=== PATIENT | male | born 1960 | race Caucasian/White ===

== ENCOUNTER 2021-08-13 08:30 | Day surgery (SDC) | payer OTHER ==
[2021-08-10 10:13] VITALS: BMI 24.1
[2021-08-13] MEDS ORDERED: LACTATED RINGERS SOLUTION 1,000 ML IV SCH (10:00)
[2021-08-13] MEDS ORDERED: MIDAZOLAM HCL 2 MG/2 ML SINGLE DOSE VIAL ONE ×2 (10:36→11:42)
[2021-08-13] MEDS ORDERED: ROPIVACAINE HCL/PF 100 MG/20 ML VIAL ONE (10:36)
[2021-08-13] MEDS ORDERED: PROPOFOL 20 ML ONE (11:43)
[2021-08-13] MEDS ORDERED: KETOROLAC TROMETHAMINE 30 MG/1 ML VIAL ONE (12:52)
[2021-08-13 14:07] VITALS: TEMP 97.6
[2021-08-13 14:44] VITALS: BP 143/90; PULSE 76
== END 2021-08-13 14:50 | disposition home or self-care (01) ==
LOC: FASU 08:30
PROVIDERS: ATTEND Orthopaedic Surgery
PROC: 0LS34ZZ Reposition Right Upper Arm Tendon, Percutaneous Endoscopic Approach (ICD-10-PCS; 2021-08-13)
PROC: 0RNJ4ZZ Release Right Shoulder Joint, Percutaneous Endoscopic Approach (ICD-10-PCS; 2021-08-13)
PROC: 0PB94ZZ Excision of Right Clavicle, Percutaneous Endoscopic Approach (ICD-10-PCS; 2021-08-13)
PROC: 0RBJ4ZZ Excision of Right Shoulder Joint, Percutaneous Endoscopic Approach (ICD-10-PCS; 2021-08-13)
PROC: 0LQ14ZZ Repair Right Shoulder Tendon, Percutaneous Endoscopic Approach (ICD-10-PCS; principal; 2021-08-13 11:30)
DX: M75.101 Unspecified rotator cuff tear or rupture of right shoulder, not specified as traumatic (principal); S46.201A Unspecified injury of muscle, fascia and tendon of other parts of biceps, right arm, initial encounter; M75.01 Adhesive capsulitis of right shoulder; M75.41 Impingement syndrome of right shoulder; M19.011 Primary osteoarthritis, right shoulder; M65.811 Other synovitis and tenosynovitis, right shoulder; S43.431A Superior glenoid labrum lesion of right shoulder, initial encounter; X58.XXXA Exposure to other specified factors, initial encounter; Y93.9 Activity, unspecified; Y92.9 Unspecified place or not applicable
CPT/HCPCS: 88304-TC; 94760

== ENCOUNTER 2023-04-03 05:12 | Day surgery (SDC) | payer OTHER ==
[2023-03-31 09:44] VITALS: BMI 26.6
[2023-04-03] MEDS ORDERED: oxyCODONE HCL 5 MG TABLET PO PRN (09:17)
[2023-04-03] MEDS ORDERED: MIDAZOLAM HCL 2 MG/2 ML SINGLE DOSE VIAL ONE (09:59)
[2023-04-03] MEDS ORDERED: PROPOFOL 40 ML ONE (09:59)
[2023-04-03] MEDS ORDERED: DEXAMETHASONE SOD PHOSPHATE 4 MG/1 ML VIAL ONE (10:01)
[2023-04-03] MEDS ORDERED: ONDANSETRON 4 MG/2 ML VIAL ONE (10:01)
[2023-04-03] MEDS ORDERED: LIDOCAINE HCL/PF 2% SDV 5ML VIAL ONE (10:01)
[2023-04-03] MEDS ORDERED: ceFAZolin SODIUM 1 GM VIAL ONE (10:01)
[2023-04-03] MEDS ORDERED: SODIUM CHLORIDE 0.9% P/F 10 ML VIAL IJ ONE (10:01)
[2023-04-03] MEDS ORDERED: ACETAMINOPHEN INJECTION 200 ML IVPB ONE (10:45)
[2023-04-03] MEDS ORDERED: ceFAZolin SODIUM 1 GM VIAL IVPB ONE (11:10)
[2023-04-03] MEDS ORDERED: ALPRAZolam 0.25 MG TABLET PO SCH (22:00)
[2023-04-03] MEDS ORDERED: ROSUVASTATIN CA 10 MG TABLET PO SCH (22:00)
[2023-04-04 05:11] VITALS: RESP 20
[2023-04-04] MEDS: LACTATED RINGERS SOLUTION 1,000 ML IV SCH ×2 (05:45→09:43)
[2023-04-04] MEDS ORDERED: LISINOPRIL 10 MG TABLET PO SCH (10:00)
[2023-04-04 10:46] VITALS: BP 143/93; PULSE 93; TEMP 99.2
== END 2023-04-04 10:50 | disposition home or self-care (01) ==
LOC: JASU-SURG 05:12 → JASUSAT 05:12 → J8W 20:40 → JASUSAT 04-04 10:50
PROVIDERS: ATTEND Urology
PROC: 0VT08ZZ Resection of Prostate, Via Natural or Artificial Opening Endoscopic (ICD-10-PCS; principal; 2023-04-03 10:00)
DX: N40.0 Benign prostatic hyperplasia without lower urinary tract symptoms (principal)
CPT/HCPCS: 94760